=== PATIENT | male | born 1970 | race Caucasian/White ===

== ENCOUNTER → 2018-04-29 06:46 | Outpatient (CLI) | payer OTHER, SELFPAY ==
--- NOTE | 2018-04-29 07:46 | DI.CT.S_ITS ---
PROCEDURE: CT ABDOMEN W CON INDICATIONS: RIGHT UPPER QUADRANT PAIN TECHNIQUE: After the administration of oral and intravenous contrast, 5 mm thick sections acquired from the diaphragms to the iliac crests. 5 mm thick coronal and sagittal reformats were acquired. For radiation dose reduction, the following was used: automated exposure control, adjustment of mA and/or kV according to patient size. COMPARISON: [facility], CT, IVP (ABD & PEL WWO CONTRAST), 08/31/2017, 10:28. FINDINGS: Image quality: Excellent. Lung bases: Lung bases are clear. Heart size is normal. Solid organs: Liver is normal in size and enhancement. Gallbladder is within normal limits. Biliary system is non dilated. Pancreas enhances normally. Spleen is normal in size and enhancement. No adrenal nodules. Kidneys are normal in size. Mild bilateral pelvocaliectasis is again seen, unchanged from prior study. No filling defects are noted. No renal stone or ureteral stone is seen. No perinephric fat stranding. Peritoneum and bowel: Contrast enhanced bowel loops appear normal in caliber. No free fluid or air. There is a small hiatal hernia. Fecal stasis throughout the colon is noted. Nodes and vessels: No retroperitoneal or mesenteric adenopathy by size criteria. Aorta and inferior vena cava are normal in size. Bones: No suspicious bony lesions. No vertebral body compression fractures. Miscellaneous: No ventral hernias. IMPRESSION: 1. Mild bilateral renal pelvocaliectasis, changed from previous study and may represent mild bilateral UPJ stenosis. No renal stone or ureteral stone is seen. No perinephric fat stranding. 2. Mild constipation. Small hiatal hernia. No bowel obstruction. No free fluid or free air. Dictated by: Riley Ro M.D. on 04/29/2018 at 8:58 Approved by: Riley Ro M.D. on 04/29/2018 at 9:04
== END ==
PROVIDERS: Family Provider Specialist; PCP Family Medicine; Visit Provider Physical Medicine & Rehabilitation
DX: R10.11 Right upper quadrant pain (principal); N28.89 Other specified disorders of kidney and ureter; K59.00 Constipation, unspecified; K44.9 Diaphragmatic hernia without obstruction or gangrene; M47.817 Spondylosis without myelopathy or radiculopathy, lumbosacral region; M51.36 Other intervertebral disc degeneration, lumbar region
CPT/HCPCS: 74160; Q9967

== ENCOUNTER → 2018-05-30 17:14 | Outpatient (CLI) | payer OTHER, SELFPAY ==
--- NOTE | 2018-05-30 17:21 | DI.MRI.S_ITS ---
PROCEDURE: MR LUMBAR SPINE WO CON INDICATIONS: Low back pain with right buttock and lateral lower leg pain and numbness TECHNIQUE: Noncontrast sagittal T1 spin echo and T2 fast echo, sagittal STIR, axial T1 and T2 fast spin echo through the lumbar spine. In cases with scoliosis, additional coronal T2 fast spin echo may be performed. COMPARISON: [facility], MR, MR LUMBAR SPINE WO CON, 09/24/2015, 9:39. FINDINGS: Image quality: Excellent. Alignment and Curvature: There is straightening of normal lumbar lordosis. Minimal retrolisthesis of L4 and L5 is again seen, unchanged from previous study. Bone Marrow: Marrow is of normal overall signal. No acute vertebral body compression fractures. Decreased intervertebral disc space and degenerative endplate changes throughout lumbar spine is seen. Spinal Cord: Conus medullaris terminates at the T12-L1 level. Visualized cord demonstrates normal signal and size. Paraspinous Soft Tissues: No paravertebral masses. L1-L2: Mild diffuse disc bulge and bilateral facet arthrosis is seen with mild central canal stenosis, no significant neuroforaminal narrowing. L2-L3: Mild diffuse disc bulge and bilateral facet arthrosis is seen with mild central canal stenosis, no significant neuroforaminal narrowing. L3-L4: Broad-based disc bulge and bilateral facet arthrosis is seen with hypertrophy of ligamentum flavum. Mild central canal stenosis is seen, mild left-sided neural foramina narrowing is noted. L4-L5: Again noted is diffuse disc bulge and superimposed broad-based central disc protrusion. Bilateral facet arthrosis and hypertrophy of ligamentum flavum is seen. Moderate to severe central canal stenosis and bilateral neural foramina narrowing is noted at this level progressed since 2016 study. Finding is slightly worse on the right side with bulging disc likely contacting bilateral L4 and L5 nerve roots. L5-S1: Diffuse disc bulge and superimposed right lateral disc protrusion is seen with bilateral fibrosis and hypertrophy of ligamentum flavum. Mild central canal stenosis is noted. Moderate to severe right-sided neuroforaminal narrowing and mild to moderate left-sided neural foramina narrowing is seen, also progressed since previous study. Bulging disc likely contacting right L5 and S1 nerve roots. IMPRESSION: 1. Diffuse disc bulge and superimposed disc herniation with bilateral facet arthrosis at L4-5 and L5-S1 levels causing moderate central canal stenosis and moderate to severe bilateral neuroforaminal narrowing as described in detail above, progressed since 1999 at 16 study. 2. Mild degenerative disc bulge at L1-2 through L3-4 levels causing mild central canal stenosis, not significantly changed from previous study. 3. Stable minimal retrolisthesis of L4 on L5. No compression fracture. No marrow edema. Dictated by: Riley Ro M.D. on 05/31/2018 at 8:20 Approved by: Riley Ro M.D. on 05/31/2018 at 8:55
== END ==
PROVIDERS: Family Provider Specialist; PCP Family Medicine; Visit Provider Physical Medicine & Rehabilitation
DX: M47.817 Spondylosis without myelopathy or radiculopathy, lumbosacral region (principal); M47.816 Spondylosis without myelopathy or radiculopathy, lumbar region; M51.26 Other intervertebral disc displacement, lumbar region; M51.27 Other intervertebral disc displacement, lumbosacral region; M51.36 Other intervertebral disc degeneration, lumbar region; M48.061 Spinal stenosis, lumbar region without neurogenic claudication; M48.07 Spinal stenosis, lumbosacral region; M79.661 Pain in right lower leg
CPT/HCPCS: 72148

== ENCOUNTER 2018-06-25 14:15 | Outpatient (CLI) | payer OTHER, SELFPAY ==
[2018-06-25] VITALS (8 sets, daily range): BP systolic 104–133; BP diastolic 62–80; PULSE 58–70; RESP 16–18; TEMP 36.4; O2SAT 98–100
--- NOTE | 2018-06-25 14:17 | DI.RAD.S_ITS ---
PROCEDURE: PAIN L/SI FACET INJ/BLK 1STL INDICATIONS: [id number] Right L4/L5, L5/S1 facet joint injection FINDINGS: Fluoroscopic spot filming was performed to verify placement of spinal needles at the L4-L5 and L5-S1 level(s), as labeled on the films. Appropriate location(s) of the needle tip(s) was confirmed by injection of iodinated contrast. IMPRESSION: Fluoroscopy for pain management. Dictated by: Fadi Chilel M.D. on 06/25/2018 at 17:41 Approved by: Fadi Chilel M.D. on 06/25/2018 at 17:41
[2018-06-25] MEDS: MIDAZOLAM 5 MG/5 ML VIAL IV (15:05)
--- NOTE | 2018-06-25 15:22 | PC.NURSE ---
ACCEPTED CARE OF PT IN POST PROC AREA IN STABLE CONDITION
--- NOTE | 2018-06-25 15:25 | PC.NURSE ---
pt tolerated procedure well. pt a little sleepy but alert and able to get off the table with 2 person standby assist. Transferred pt via w/c to pre procedure room. Resumed monitoring by Tameka PEREZ.
--- NOTE | 2018-06-25 15:29 | P.PCN_ITS ---
Procedures Date/Time Date of procedure: 06/25/18 Time of procedure: 15:28 General Procedure description: PREOP DIAGNOSIS 1. FACET ARTHROPATHY, 2. AXIAL LBP, 3. MULTILEVEL DDD, POST OP DIAGNOSIS 1. FACET ARTHROPATHY, 2. AXIAL LBP, 3. MULTILEVEL DDD, PROCEDURES 1. FLUORSCOPICALLY GUIDED CONTRAST CONTROLLED FACET JOINT INJECTIONS RIGHT L4/5 , L5/S1 SURGEON: Ayad Medina, DO INDICATIONS Vahe is referred by for treatment of Axial LBP FINDINGS Multilevel Facet Arthropathy with Clinically significant axial LBP DESCRIPTION OF PROCEDURE Fluoroscopically guided, contrast-controlled right L4/5, L5/S1 facet joint injections. Following denial of allergy and review of potential side effects and complications, including, but not necessarily limited to, infection, allergic reaction, local tissue breakdown, stroke, temporary or permanent nerve injury, paralysis, and possible , the patient indicated that the patient understood and agreed to proceed. An informed consent document was signed by the patient, witnessed by a nurse, and placed in the patient's chart. Additionally, other treatment options including medications, modalities, and physical therapy were reviewed with the patient. After review of previous anaesthesic history and IV conscious sedation the patient was deemed safe to proceed with todays procedure with IV conscious sedation as ASA class II designation. Safety time-out was performed to confirm patient ID, procedure to be performed and site of procedure. IV sedation was accomplished with a combination of 4mg of Versed was administered by the RN after DO order, titrated to patient comfort during the course of the procedure while the patient remained responsive to all verbal commands. In the prone position, following sterile prep and drape of the lumbar region, the posterior aspect of the right L4/5, L5/S1 facet joints were identified fluoroscopically. The skin was anesthetized via a 25-gauge 1.5-inch needle with 1% lidocaine solution into the corresponding facet joints. At this point, a 22-gauge 3.5-inch spinal needle was atraumatically introduced and advanced under fluoroscopic guidance into the corresponding facet joints. Following negative aspiration, injections of approximately 0.2-cc of Isovue 200 confirmed interarticular placement without vascular uptake. Radiological data, including multiple fluoroscopic views of the lumbosacral spine, reveal a spinal needle at the right L4/5, L5/S1 facet joints. Subsequent views show flow of contrast material both superiorly and inferiorly within the joint space without vascular or intrathecal uptake. At this point, a total of 0.5 cc including a mixture of 0.25cc Marcaine and 0.25cc betamethasone was injected without complication into each of the corresponding facet joints. The procedure tolerated the procedure well without signs or symptoms of complications prior to transfer to the recovery area continued monitoring without incident. The patient was then transferred to the recovery area where they were observed for an appropriate period of time after the injection. The patient reported a VAS score of 7 prior to the procedure and a post-procedure VAS of 0. Total Fluoroscopy Time: 12.7 seconds Total Conscious Sedation Time: 24min POST OP INSTRUCTIONS The patient was provided a Pain Log to continue to record their response to the target-specific procedure prior to follow-up visit with their referring physician. Additionally, specific post-injection care instructions and a contact number to our office were provided if concerns arise regarding possible complications associated with the procedure are suspected. Ayad Medina, Complications: none
[2018-06-25] MEDS: LIDOCAINE 1% 20 ML INJ 10 ML INJ (15:33)
[2018-06-25] MEDS: IOPAMIDOL 15 ML VIAL 3 ML INJ (15:33)
[2018-06-25] MEDS: BETAMETHASONE 30 MG/5 ML MDV 12 MG INJ (15:34)
--- NOTE | 2018-06-26 16:17 | PC.NURSE ---
FOLLOW UP CALL MADE. MSG LEFT WITH CLINIC # FOR QUESTIONS/CONCERNS.
== END 2018-06-25 15:56 | disposition home or self-care (01) ==
PROVIDERS: Family Provider Specialist; PCP Family Medicine; Visit Provider Physical Medicine & Rehabilitation
DX: M47.817 Spondylosis without myelopathy or radiculopathy, lumbosacral region (principal); M51.36 Other intervertebral disc degeneration, lumbar region; M54.5 Low back pain
CPT/HCPCS: 64493; 64494; 99152; J0702; J2250

== ENCOUNTER 2018-09-03 14:58 | Outpatient (CLI) | payer OTHER, SELFPAY ==
[2018-09-03] VITALS (8 sets, daily range): BP systolic 105–129; BP diastolic 65–106; PULSE 65–77; RESP 16–18; TEMP 36.3; O2SAT 98–100
--- NOTE | 2018-09-03 15:00 | DI.RAD.S_ITS ---
PROCEDURE: PAIN L/SI FACET INJ/BLK 1STL INDICATIONS: SPONDYLOSIS FINDINGS: Fluoroscopic spot filming was performed to verify placement of spinal needles at the T12-L1 and the L1-L2 right-sided facet joints, as labeled on the films. Appropriate location(s) of the needle tip(s) was confirmed by injection of iodinated contrast. IMPRESSION: Facet localization for a steroid injection on the right at T12-L1 and L1-L2. Dictated by: Jcarlos Baez M.D. on 09/03/2018 at 16:14 Approved by: Jcarlos Baez M.D. on 09/03/2018 at 16:15
[2018-09-03] MEDS: MIDAZOLAM 5 MG/5 ML VIAL IV (15:23)
[2018-09-03] MEDS: BETAMETHASONE 30 MG/5 ML MDV 12 MG INJ (15:28)
[2018-09-03] MEDS: IOPAMIDOL 15 ML VIAL 3 ML INJ (15:28)
[2018-09-03] MEDS: BUPIVACAINE 0.5% (PF) VIAL 2 ML INJ (15:28)
--- NOTE | 2018-09-03 15:30 | PC.NURSE ---
ASSISTING PT OFF TABLE AND TRANSPORTING TO POST PROC AREA IN STABLE CONDITION
--- NOTE | 2018-09-03 15:42 | P.PCN_ITS ---
Procedures Date/Time Date of procedure: 09/03/18 Time of procedure: 15:37 General Procedure description: PREOP DIAGNOSIS 1. FACET ARTHROPATHY, 2. AXIAL LBP, 3. MULTILEVEL DDD, POST OP DIAGNOSIS 1. FACET ARTHROPATHY, 2. AXIAL LBP, 3. MULTILEVEL DDD, PROCEDURES 1. FLUORSCOPICALLY GUIDED CONTRAST CONTROLLED FACET JOINT INJECTIONS RIGHT T12/L1, L1/2 FACET JOINT INJECTIONS SURGEON: Ayad Medina, DO INDICATIONS Vahe is referred by Dr. Smith for treatment of Axial LBP FINDINGS Multilevel Facet Arthropathy with Clinically significant axial LBP DESCRIPTION OF PROCEDURE Fluoroscopically guided, contrast-controlled right T12/L1, L1/2 facet joint injections. Following denial of allergy and review of potential side effects and complications, including, but not necessarily limited to, infection, allergic reaction, local tissue breakdown, stroke, temporary or permanent nerve injury, paralysis, and possible , the patient indicated that the patient understood and agreed to proceed. An informed consent document was signed by the patient, witnessed by a nurse, and placed in the patient's chart. Additionally, other treatment options including medications, modalities, and physical therapy were reviewed with the patient. After review of previous anaesthesic history and IV conscious sedation the patient was deemed safe to proceed with todays procedure with IV conscious sedation as ASA class II designation. Safety time-out was performed to confirm patient ID, procedure to be performed and site of procedure. IV sedation was accomplished with a combination of 3mg of Versed administered by the RN after DO order, titrated to patient comfort during the course of the procedure while the patient remained responsive to all verbal commands. In the prone position, following sterile prep and drape of the lumbar region, the posterior aspect of the right T12/L1, L1/2 facet joints were identified fluoroscopically. The skin was anesthetized via a 25-gauge 1.5-inch needle with 1% lidocaine solution into the corresponding facet joints. At this point, a 22- gauge 3.5-inch spinal needle was atraumatically introduced and advanced under fluoroscopic guidance into the corresponding facet joints. Following negative aspiration, injections of approximately 0.2-cc of Isovue 200 confirmed interarticular placement without vascular uptake. Radiological data, including multiple fluoroscopic views of the lumbosacral spine, reveal a spinal needle at the right T12/L1, L1/2 facet joints. Subsequent views show flow of contrast material both superiorly and inferiorly within the joint space without vascular or intrathecal uptake. At this point, a total of 0.5 cc including a mixture of 0.25 cc Marcaine and 0.25 cc betamethasone was injected without complication into each of the corresponding facet joints. The patient tolerated the procedure well without signs or symptoms of complications prior to transfer to the recovery area for further monitoring. The patient was then transferred to the recovery area where they were observed for an appropriate period of time after the injection. The patient reported a VAS score of 7 prior to the procedure and a post-procedure VAS of 0. Total Fluoroscopy Time: 12.7 seconds Total Conscious Sedation Time: 24min POST OP INSTRUCTIONS The patient was provided a Pain Log to continue to record their response to the target-specific procedure prior to follow-up visit with their referring physician. Additionally, specific post-injection care instructions and a contact number to our office were provided if concerns arise regarding possible compli cations associated with the procedure are suspected Complications: none
--- NOTE | 2018-09-03 16:04 | PC.NURSE ---
pt returned from procedure via wheelchair, awake and alert, able to move from w/c to chair with standby assist. Resumed monitoring from Tameka PEREZ.
--- NOTE | 2018-09-04 15:41 | PC.NURSE ---
FOLLOW UP CALL MADE, LEFT PHONE MSG WITH CLINIC PHONE NUMBER AND HOURS FOR QUESTIONS/CONCERNS.
== END 2018-09-03 16:09 ==
LOC: RAD 15:00
PROVIDERS: PCP Family Medicine; Visit Provider Physical Medicine & Rehabilitation
DX: M47.816 Spondylosis without myelopathy or radiculopathy, lumbar region (principal); M47.815 Spondylosis without myelopathy or radiculopathy, thoracolumbar region; M51.36 Other intervertebral disc degeneration, lumbar region; M51.25 Other intervertebral disc displacement, thoracolumbar region
CPT/HCPCS: 64493; 64494; 99152; J0702; J2250; J3010

== ENCOUNTER 2019-06-24 15:27 | Outpatient (CLI) | payer OTHER, SELFPAY ==
[2019-06-24] VITALS (7 sets, daily range): BP systolic 107–125; BP diastolic 67–84; PULSE 65–78; RESP 16–18; TEMP 36.4; O2SAT 97–100
--- NOTE | 2019-06-24 15:30 | DI.RAD.S_ITS ---
PROCEDURE: PAIN L/SI FACET INJ/BLK 1STL INDICATIONS: SPONDYLOSIS FINDINGS: Fluoroscopic spot filming was performed to verify placement of spinal needles at the L4, L5 and S1 level(s), as labeled on the films. Appropriate location(s) of the needle tip(s) was confirmed by injection of iodinated contrast. Dictated by: Damian Sheffield M.D. on 06/24/2019 at 17:24 Approved by: Damian Sheffield M.D. on 06/24/2019 at 17:25
[2019-06-24] MEDS: fentaNYL 100 MCG/2 ML INJ 50 MCG IV (16:27)
[2019-06-24] MEDS: MIDAZOLAM 5 MG/5 ML VIAL IV (16:27)
[2019-06-24] MEDS: IOPAMIDOL 15 ML VIAL 3 ML INJ (16:30)
[2019-06-24] MEDS: BUPIVACAINE 0.5% (PF) VIAL 2 ML INJ (16:30)
--- NOTE | 2019-06-24 16:33 | PC.NURSE ---
ASSISTING PT OFF TABLE AND TRANSPORTING TO POST PROC AREA IN STABLE CONDITION. PASSING RN CARE OF PT OFF TO RUBY Will RN.
--- NOTE | 2019-06-24 16:40 | PM.PROC.1 ---
Procedures Date/Time Date of procedure: 06/24/19 Time of procedure: 16:41 General Procedure description: POST OP DIAGNOSIS 1. FACET ARTHROPATHY PROCEDURES 1. Right L4, L5 and S1 MB BLOCKS PHYSICIAN: DO ADNA Lerma Vhae is referred by Dr. Smith for treatment of Right Axial LBP. DESCRIPTION OF PROCEDURE Fluoroscopically guided, contrast-controlled right L4, L5 and S1 medial branch blocks with 0.5cc of 0.5% Marcaine. Following review of allergy and review of potential side effects and complications, including, but not necessarily limited to, infection, allergic reaction, local tissue breakdown, nerve injury, paralysis, stroke and possible , the patient indicated that the patient understood and agreed to proceed. An informed consent document was signed by the patient, witnessed by a nurse, and placed in the patient's chart. After review of previous anaesthesic history and IV conscious sedation the patient was deemed safe to proceed with todays procedure with IV conscious sedation as ASA class II designation. Safety time-out was performed to confirm patient ID, procedure to be performed and site of procedure. IV sedation was accomplished with a combination of 2mg of Versed and 25mcg of Fentanyl was administered by the RN after DO order, titrated to patient comfort during the course of the procedure while the patient remained responsive to all verbal commands In the prone position, following sterile prep and drape of the lumbar region, the right L4, L5 and S1 anatomical location of the medial branch of the dorsal ramus was identified fluoroscopically. Subsequently an anesthetic skin wheal using 1% lidocaine solution was initiated at each of the anatomical spots. Subsequently then a 25-gauge 3.5-inch spinal needle was atraumatically introduced and advanced under fluoroscopic guidance at each of the corresponding sites at the right L4, L5 and S1 MB. After negative aspiration, 0.2 cc of Isovue 200 was injected, confirming placement without vascular or intrathecal uptake. Subsequently then 0.5 cc of 0.5% Marcaine solution was injected at each of the corresponding sites at the right L4, L5 and S1 medial branch locations. The patient tolerated the procedure well without signs or symptoms of complications. The procedure tolerated the procedure well without signs or symptoms of complications prior to transfer to the recovery area continued monitoring without incident. Post-procedure, the patient was monitored initiating provocative activities to measure the amount of relief from block of the facetogenic pain. The patient reported a VAS of 7 prior to the procedure and a post-procedure VAS of 1. It has been a pleasure to assist in the diagnostic and therapeutic care of your patient. Total Fluoroscopy Time: 8 seconds Total Conscious Sedation Time: 24min POST OP INSTRUCTIONS The patient was provided with a Pain Log to complete over the next several hours and subsequent days prior to the patient's follow up with the ordering physician. If the patient has [employer] certified network associate relief to the solution applied, then they may be a candidate for medial branch rhizotomy. The patient is aware, was provided, once again, with a Pain Log and will follow up with the referring physician for review and clinical correlation Ayad Medina DO Complications: none
== END 2019-06-24 17:02 | disposition home or self-care (01) ==
LOC: RAD 15:29
PROVIDERS: PCP Family Medicine; Visit Provider Physical Medicine & Rehabilitation
DX: M47.816 Spondylosis without myelopathy or radiculopathy, lumbar region (principal); M47.817 Spondylosis without myelopathy or radiculopathy, lumbosacral region; M54.5 Low back pain
CPT/HCPCS: 64493; 64494; 99152; J2250; J3010

== ENCOUNTER → 2019-12-06 11:11 | Outpatient (CLI) | payer OTHER, SELFPAY ==
[2019-12-07 18:11] LABS: COVID19 Sendout Not Detected (Not Detect)
== END ==
PROVIDERS: PCP Family Medicine; Visit Provider Physician Assistant
DX: Z01.812 Encounter for preprocedural laboratory examination (principal)
CPT/HCPCS: 87635

== ENCOUNTER 2019-12-09 07:43 | Outpatient (CLI) | payer OTHER, SELFPAY ==
[2019-12-09] VITALS (11 sets, daily range): BP systolic 114–140; BP diastolic 63–85; PULSE 61–86; RESP 15–18; TEMP 36.1; O2SAT 97–100
--- NOTE | 2019-12-09 07:44 | DI.RAD.S_ITS ---
PROCEDURE: PAIN L/S MED/LAT N RFA INDICATIONS: SPONDYLOSIS FINDINGS: Fluoroscopic spot filming was performed to verify placement of spinal needles at the L4, L5, and S1 levels on the right, as labeled on the films. IMPRESSION: Intraprocedural examination within normal limits. Dictated by: Gabriel Peterson M.D. on 12/09/2019 at 8:40 Approved by: Gabriel Peterson M.D. on 12/09/2019 at 8:40
[2019-12-09] MEDS: MIDAZOLAM 2 MG/2 ML VIAL IV ×2 (08:35→08:36)
[2019-12-09] MEDS: fentaNYL 100 MCG/2 ML INJ 50 MCG IV (08:35)
[2019-12-09] MEDS: LIDOCAINE 1% 20 ML 10 ML INJ (08:53)
[2019-12-09] MEDS: BUPIVACAINE 0.5% (PF) VIAL 2 ML INJ (08:54)
--- NOTE | 2019-12-09 09:09 | P.PCN_ITS ---
Date/Time/Diagnoses Date of procedure: 12/09/19 Time of procedure: 09:09 Pre-procedure diagnosis: 1. RECALCITRANT FACET ARTHROPATHY Post-procedure diagnosis: same Procedure Notes Procedure: 1. RIGHT L4 AND L5 MEDIAL BRANCH RADIOFREQUENCY NEUROTOMY AND RIGHT S1 DORSAL RAMUS BRANCH RADIOFREQUENCY NEUROTOMY Indications: Vahe is referred by Dr. Smith for treatment of facet arthropathy. Physician: Ayad Medina Total Fluoroscopy time (seconds): 11 Total sedation minutes: 45 Complications: none Procedure in detail & Post-procedure care: DESCRIPTION OF PROCEDURE Right L4 and L5 medial branch radiofrequency neurotomy and right S1 dorsal ramus branch radiofrequency neurotomy under fluoroscopy with conscious sedation. The patient is well known to this clinic having undergone previous facet injections with good but temporary relief. The patient has experienced appropriate, concordant relief with previous facet and median branch blocks but the patient's pain has been recalcitrant to further conservative measures. Therefore, based upon the patient's relief and persistent symptoms, the patient is considered an appropriate candidate for facet rhizotomy. All of the patient's questions regarding the risks versus benefits of the procedure, including, but not limited to, bleeding, infection, temporary as well as lasting nerve injury, paralysis, stroke, and , as well treatment alternatives were answered to satisfaction. After review of previous anaesthesic history and IV conscious sedation the patient was deemed safe to proceed with today?s procedure with IV conscious sedation as ASA class II designation. Safety time-out was performed to confirm patient ID, procedure to be performed and site of procedure. IV sedation was accomplished with a combination of 3mg of Versed and 50mcg of Fentanyl was administered by the RN after DO order, titrated to patient comfort during the course of the procedure while the patient remained responsive to all verbal commands. After obtaining informed consent, denial of pertinent drug allergies, as well as being made aware of the potential risks of bleeding, infection, spinal cord trauma, paralysis, temporary and permanent nerve damage, seizure, stroke, and possible , the patient was brought to the fluoroscopy suite and positioned prone on the fluoroscopy table. The lumbar region was prepped with chlorhexadine and covered with a fenestrated drape in the usual sterile fashion. Appropriate monitors applied including pulse oximeter, pulse, and blood pressure for regular monitoring throughout the procedure. After local infiltration using 1% lidocaine, under fluoroscopic guidance, a 10- cm RF insulated needle with a 10-mm active tip was positioned parallel to the junction of the right sacral ala and the superior articulating process where the S1 dorsal ramus resides. Needle placement was confirmed with sensory stimulation at 50 Hz, with motor stimulation of .5v on the right which produced local stimulation without radicular component. The stimulation was then increased to 1.5v with, once again, only local multifidus stimulation without radicular component. This was then followed by two discreet lesions performed at 80 degrees Celsius for 90 seconds each. The needle was then removed and the identical procedure was performed along the length of the right L5 medial branch with motor stimulation at .7v on the right. The identical procedure was once again performed along the length of the right L4 medial branch with motor stimulation of .5v on the right. The patient tolerated the procedure well without signs or symptoms of complications prior to transfer to the recovery area continued monitoring without incident. The patient was then transferred to the recovery area where they were observed for an appropriate period of time after the injection. The patient was then transferred to the recovery area where they were observed for an appropriate period of time after the injection. The patient reported a VAS score of 97prior to the procedure and a post- procedure VAS of 1. POST OP INSTRUCTIONS The patient was provided a Pain Log to continue to record the patient's response to the target-specific procedure prior to the patient's follow-up visit with the referring physician. Additionally, specific post-injection care instructions and a contact number to our office were provided if concerns arise regarding possible complications associated with the procedure are suspected.
--- NOTE | 2019-12-09 09:19 | PC.NURSE ---
Pt returned to pre proc room via wc. 1PA from wc to chair, resumed monitoring by Ban
--- NOTE | 2019-12-09 16:00 | PC.NURSE ---
Pt tolerated procedure well. Vitals stable upon transfer to ANA Cevallos in post procedure/recovery room. Fentanyl and Versed given by ANA Tejeda, all other meds administered by Dr. Medina.
== END 2019-12-09 09:36 | disposition home or self-care (01) ==
LOC: RAD 07:44
PROVIDERS: PCP Family Medicine; Referring Provider Physical Medicine & Rehabilitation; Visit Provider Physical Medicine & Rehabilitation
DX: M47.816 Spondylosis without myelopathy or radiculopathy, lumbar region (principal); M47.817 Spondylosis without myelopathy or radiculopathy, lumbosacral region
CPT/HCPCS: 64635; 64636; 99152; 99153; J2250; J3010

== ENCOUNTER → 2020-11-15 15:22 | Outpatient (CLI) | payer OTHER, SELFPAY ==
--- NOTE | 2020-11-15 15:25 | DI.RAD.S_ITS ---
PROCEDURE: XR LUMBAR SPINE MIN 4V INDICATIONS: PAIN TECHNIQUE: 5 views of the lumbar spine were acquired, including bilateral oblique views. COMPARISON: [facility] [place], CR, SPINE LUMB MIN 4VW, 12/13/2016, 9:14. FINDINGS: Bones: No acute fracture. Multilevel degenerative endplate sclerosis and spurring. Diffuse facet arthropathy. Moderate narrowing of the L4-L5 disc space. Mild narrowing of the remaining lumbar disc spaces. Trace retrolisthesis of L2 on L3 and L3 on L4. Soft tissues: Overlying bowel gas pattern is normal. No suspicious soft tissue calcifications. Oblique images: No pars defects. IMPRESSION: Diffuse lumbar spondylosis and moderate L4-L5 disc degeneration, with slight progression since 12/13/16. Diffuse facet arthropathy Dictated by: Damian Sheffield M.D. on 11/15/2020 at 16:28 Approved by: Damian Sheffield M.D. on 11/15/2020 at 16:30
--- NOTE | 2020-11-15 15:25 | DI.RAD.S_ITS ---
PROCEDURE: XR THORACIC SPINE 3V INDICATIONS: PAIN TECHNIQUE: 3 views of the thoracic spine were acquired. COMPARISON: None. FINDINGS: Bones: No acute fracture identified. There is dextrocurvature of the visualized thoracic spine. Multilevel degenerative endplate sclerosis and spurring. Diffuse facet arthropathy. Lower cervical spondylosis and facet arthropathy also noted. Chronic soft tissue calcification projects at the base of the posterior cervical spine. Soft tissues: No paravertebral stripe thickening. IMPRESSION: Diffuse spondylitic changes. Dextrocurvature Lower cervical spondylosis also noted. Dictated by: Damian Sheffield M.D. on 11/15/2020 at 16:27 Approved by: Damian Sheffield M.D. on 11/15/2020 at 16:28
== END ==
PROVIDERS: Referring Provider Physical Medicine & Rehabilitation; Visit Provider Physical Medicine & Rehabilitation
DX: M47.816 Spondylosis without myelopathy or radiculopathy, lumbar region (principal); M47.817 Spondylosis without myelopathy or radiculopathy, lumbosacral region; M47.814 Spondylosis without myelopathy or radiculopathy, thoracic region; M47.812 Spondylosis without myelopathy or radiculopathy, cervical region; M51.24 Other intervertebral disc displacement, thoracic region
CPT/HCPCS: 72072; 72110

== ENCOUNTER → 2022-05-11 15:51 | Outpatient (CLI) | payer OTHER, SELFPAY ==
--- NOTE | 2022-05-11 15:58 | DI.RAD.S_ITS ---
PROCEDURE: XR CERVICAL SPINE 4V OR 5V INDICATIONS: NECK PAIN TECHNIQUE: 5 views of the cervical spine acquired. COMPARISON: None. FINDINGS: Bones: No fractures or dislocations to the C7 level. There is trace retrolisthesis at C3-4 and C4-5. Intervertebral disc space narrowing and osteophytosis is present within the mid cervical spine. Moderate to severe foraminal stenosis is present on the right at C4-5 and moderate stenosis is present at C5-6. Severe foraminal stenosis is present on the left at C4-5 and C5-6. Moderate stenosis is present on the left at C6-7. Soft tissues: No prevertebral soft tissue swelling. IMPRESSION: Degenerative change and foraminal stenosis as above. Dictated by: Krystin White M.D. on 05/11/2022 at 16:38 Approved by: Krystin White M.D. on 05/11/2022 at 16:39
--- NOTE | 2022-05-11 15:58 | DI.RAD.S_ITS ---
PROCEDURE: XR SHOULDER RT MIN 2V INDICATIONS: RIGHT SHOULDER PAIN TECHNIQUE: 3 views of the shoulder were acquired. COMPARISON: None. FINDINGS: Bones: No fractures or dislocations. No suspicious bony lesions. Visualized ribs appear intact. Soft tissues: No suspicious soft tissue calcifications. IMPRESSION: No acute radiographic findings. Dictated by: Krystin White M.D. on 05/11/2022 at 16:37 Approved by: Krystin White M.D. on 05/11/2022 at 16:37
== END ==
PROVIDERS: Referring Provider Physical Medicine & Rehabilitation; Visit Provider Physical Medicine & Rehabilitation
DX: M47.812 Spondylosis without myelopathy or radiculopathy, cervical region (principal); M48.02 Spinal stenosis, cervical region; M54.2 Cervicalgia; M25.511 Pain in right shoulder; M19.011 Primary osteoarthritis, right shoulder; M77.11 Lateral epicondylitis, right elbow; M47.816 Spondylosis without myelopathy or radiculopathy, lumbar region; M47.814 Spondylosis without myelopathy or radiculopathy, thoracic region
CPT/HCPCS: 20611; 72050; 73030; 99214; J1040

== ENCOUNTER → 2022-06-05 11:14 | Outpatient (CLI) | payer OTHER, SELFPAY ==
[2022-06-05 12:45] LABS: COVID19 -Nasal RAPID Negative (Negative)
== END ==
PROVIDERS: Visit Provider Surgery
DX: Z01.812 Encounter for preprocedural laboratory examination (principal); Z20.822 Contact with and (suspected) exposure to COVID-19
CPT/HCPCS: 87635; C9803

== ENCOUNTER 2022-06-06 12:42 | Day surgery (SDC) | payer OTHER, SELFPAY ==
--- NOTE | 2022-06-06 | PATH_ITS ---
[facility] Accession Number: [id number] . 01 Material submitted: . rectum - RECTUM . 01 Diagnosis: Rectum, Biopsy: Tubular adenoma. MRV 06/08/2022 1442 Local . 01 Electronically signed: . Radha Stark MD, Pathologist NPI- [id number] . 01 Gross description: . RECTUM: Received in formalin is 1 fragment(s) of kauffman, soft tissue measuring 0.4 x 0.3 x 0.2 cm submitted entirely in 1 cassette(s) /CPE 06/07/2022 0922 Local . 01 Pathologist provided ICD-10: D12.8 . 01 CPT . 251874 Specimen Comment: A courtesy copy of this report has been sent to [phone] Performed at: 01 [facility] [address] [place] [id number] MD Shai Almanza MD Phone: [phone]
[2022-06-06 13:02] VITALS: BP 126/70; PULSE 80; RESP 17; TEMP 36.4; O2SAT 100; BMI 25.9
--- NOTE | 2022-06-06 13:04 | PM.HP.1 ---
History of Present Illness History of Present Illness Date Patient Seen: 06/06/22 Time Patient Seen: 13:04 Chief complaint: EGD/Colonoscopy Narrative: Patient is here for colorectal screening with colonoscopy and EGD. Personal history of colonic polyps, last colonoscopy 5 years ago. He is a long history of GERD and he has occasional dyspepsia and epigastric discomfort. No dysphagia no unintentional weight loss. Father with a history of colon cancer.. On further history denies any recent gastrointestinal symptoms. No nausea, vomiting, loss of appetite, unexplained weight loss, change in bowel habits, or blood per rectum. 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 Facet arthropathy, lumbar Lateral epicondylitis Surgical History History of arthroscopy of knee Family & Social History Family History Father Colon cancer Mother Polyp, stomach Grandmother Stroke Tobacco & Substance use: Smoking Status Never smoker Meds Home Medications and Allergies Home Medications Medication Instructions Recorded Confirmed Type acetaminophen 325 mg tablet 650 mg PO Q6H PRN Pain (Scale 04/07/20 06/06/22 History (Tylenol) Score 1-3) atorvastatin 10 mg tablet 10 mg PO BEDTIME 05/11/22 06/06/22 History Allergies Allergy/AdvReac Type Severity Reaction Status Date / Time No Known Drug Allergies Allergy Verified 06/06/22 12:59 Exam Narrative Exam Narrative: General adult male alert oriented no acute distress Abdomen soft nontender nondistended Assessment & Plan Assessment & Plan narrative: 52-year-old man personal history of colonic polyps and chronic reflux here for colonoscopy and esophagoduodenoscopy. Overview the procedure was discussed with the patient. Procedural risks including bleeding, missed diagnosis, intestinal perforation, anesthetic complication were discussed. Questions have been answered he is in agreement with this plan Time Spent With Patient Critical Care time: I spent a total of [] minutes of critical care time on this patient's care today; this time is exclusive of procedural time.
[2022-06-06] MEDS: LACTATED RINGERS 1,000 ML 200 ML IV (13:13)
--- NOTE | 2022-06-06 13:37 | PM.OP.EC ---
Operative Date/Time/Diagnoses Date of procedure: 06/06/22 Time of procedure: 13:37 Pre-op diagnosis: Family history of colon cancer Personal history of colonic polyps GERD Post-op diagnosis: same Procedure & Clinicians Study performed: Esophagoduodenoscopy and colonoscopy Same procedure as scheduled: Yes Indications: Personal history of colonic polyps First-degree family member with colon cancer GERD Surgeon: Jamie Rader Procedure Notes Procedure in detail: The history and physical was performed/updated and the patient is ASA class is 2. The procedure was discussed in detail with the patient. Potential risks complications including infection, bleeding, missed diagnosis, perforation, need for surgery, and were explained. Their questions were answered and informed consent was obtained. Patient placed in left lateral decubitus position. Time out was performed. Sedation was administered by anesthesia. A bite block was placed. the scope was inserted into the mouth and advanced through the esophagus and into the stomach. The pylorus was intubated and the duodenum was normal to the 2nd portion. The scope was retroflexed within the stomach and there was no hiatal hernia. No ulcers, or gastritis. The scope was withdrawn into the esophagus the Z line was seen at 40 cm from the incisions. There was no Rubalcava's esophagitis or masses or strictures. Stomach was desufflated and scope removed. Patient tolerated procedure well. Examination began with a thorough inspection of the perianal area there was no evidence of fissures, fistulae, external hemorrhoids or cutaneous malignancy. The colonoscopy scope was then placed into the anal canal and was advanced to the cecum, which was identified by the ileocecal valve, the appendiceal orifice and the confluence of the taenia. The scope was then slowly withdrawn examining colon thoroughly in all directions, irrigating it of any residual stool. FINDINGS 1. Rectum-5 mm polyp removed with biopsy forceps 2. Normal esophagus stomach and duodenum The patient tolerated the procedure well. They will be discharged once criteria are met. The prep was of good/excellent quality. The withdrawl time was 7 minutes. Specimen(s): other (Rectal polyp) Impression: Colonic polyp Post-procedure Recommendations: Colonscopy in 5 years, Reflux diet and High fiber diet Disposition: same day surgery
[2022-06-06 14:16] VITALS: BP 100/66; PULSE 75; RESP 13; TEMP 36.1; O2SAT 98
[2022-06-06 14:21] VITALS: BP 104/66; PULSE 75; RESP 17; O2SAT 98
[2022-06-06 14:26] VITALS: BP 105/68; PULSE 67; RESP 19; O2SAT 99
[2022-06-06 14:31] VITALS: BP 108/70; PULSE 64; RESP 10; TEMP 36.1; O2SAT 100
[2022-06-06 14:37] VITALS: BP 110/74; PULSE 62; RESP 11; TEMP 36.1; O2SAT 100
== END 2022-06-06 14:44 | disposition home or self-care (01) ==
PROVIDERS: PCP Internal Medicine; Referring Provider Surgery; Visit Provider Surgery
PROC: 0DJ08ZZ Inspection of Upper Intestinal Tract, Via Natural or Artificial Opening Endoscopic (ICD-10-PCS; CPT 43235; principal; 2022-06-06 13:45)
PROC: 0DJD8ZZ Inspection of Lower Intestinal Tract, Via Natural or Artificial Opening Endoscopic (ICD-10-PCS; CPT 45378; 2022-06-06 13:45)
DX: Z12.11 Encounter for screening for malignant neoplasm of colon (principal); K21.9 Gastro-esophageal reflux disease without esophagitis; Z80.0 Family history of malignant neoplasm of digestive organs; Z86.010 Personal history of colon polyps; D12.8 Benign neoplasm of rectum
CPT/HCPCS: 45380; 43235; J2704

== ENCOUNTER → 2023-02-11 08:55 | Outpatient (CLI) | payer OTHER, SELFPAY ==
--- NOTE | 2023-02-11 08:56 | DI.MRI.S_ITS ---
PROCEDURE: MR SHOULDER RT WO CON INDICATIONS: Right shoulder impingement TECHNIQUE: Noncontrast oblique coronal T2 fast spin echo with fat saturation, oblique sagittal T1 spin echo and T2 fast spin echo with fat saturation, axial T1 spin echo and T2 fast spin echo with fat saturation through the shoulder. COMPARISON: [facility], CR, XR SHOULDER RT MIN 2V, 05/11/2022, 16:00. FINDINGS: Image quality: Excellent. Rotator cuff: There is full-thickness tearing of the supraspinatus tendon approximately 0.5 cm from the distal insertion measuring 1.1 cm in anterior-posterior dimension with mild proximal tendon retraction measuring approximately 0.6 cm. There is moderate infraspinatus and subscapularis tendinosis. The teres minor tendon is intact. There is no significant rotator cuff muscle atrophy. Bones and bursae: Osseous edema surrounding the acromioclavicular joint is most likely related to moderate degenerative changes on the than acute trabecular bone injury. There are subchondral cystic changes and small marginal osteophytes. A moderate amount of fluid is seen in the subacromial/subdeltoid bursa. Mild surface cartilage irregularity is seen in the glenohumeral joint. No significant glenohumeral effusion is seen. Capsule and soft tissues: There is nearly circumferential nondisplaced labral tearing, which is likely degenerative. A 0.4 cm paralabral cyst versus loculated joint fluid is seen at the anteroinferior labrum. The proximal biceps long head tendon demonstrates mild tendinosis. There is effacement of the normal fat signal in the rotator interval. Glenohumeral ligaments appear to be intact. IMPRESSION: 1. Focal full-thickness tearing of the supraspinatus tendon approximately 0.5 cm from the distal insertion measuring 1.1 cm with proximal tendon retraction measuring 0.6 cm. 2. Moderate infraspinatus and subscapularis tendinosis. 3. Mild tendinosis of the proximal biceps long head tendon. 4. Chronic appearing nearly circumferential nondisplaced tearing of the glenoid labrum. 0.4 cm paralabral cyst versus loculated joint fluid at the anteroinferior labrum. 5. Moderate acromioclavicular joint osteoarthrosis with prominent subchondral edema that is likely related to the degenerative changes although superimposed contusion or recent separation injury is not excluded. Acromioclavicular alignment appears normal. The coracoclavicular ligament is intact. 6. Moderate subacromial/subdeltoid bursal fluid communicates with the glenohumeral joint space. Approved by: Néstor Brown M.D. on 02/12/2023 at 10:56
== END ==
PROVIDERS: PCP Internal Medicine; Referring Provider Physical Medicine & Rehabilitation; Visit Provider Physical Medicine & Rehabilitation
DX: M75.121 Complete rotator cuff tear or rupture of right shoulder, not specified as traumatic (principal); M19.011 Primary osteoarthritis, right shoulder; M75.41 Impingement syndrome of right shoulder
CPT/HCPCS: 73221

== ENCOUNTER → 2023-06-07 08:07 | Outpatient (CLI) | payer OTHER, SELFPAY | LOC: PHYS 08:08 | PROVIDERS: PCP Internal Medicine; Referring Provider Internal Medicine; Visit Provider Physical Medicine & Rehabilitation | DX: M54.16 Radiculopathy, lumbar region (principal) | CPT/HCPCS: 95886; 95910 ==

== ENCOUNTER → 2023-06-07 10:14 | Outpatient (CLI) | payer OTHER, SELFPAY ==
--- NOTE | 2023-06-07 10:16 | DI.MRI.S_ITS ---
PROCEDURE: MR LUMBAR SPINE WO CON INDICATIONS: right lower exremity footdtop TECHNIQUE: Noncontrast sagittal T1 spin echo and T2 fast echo, sagittal STIR, and T2 fast spin echo through the lumbar spine. In cases with scoliosis, additional coronal T2 fast spin echo may be performed. COMPARISON: [facility], MR, MR LUMBAR SPINE WO CON, 05/30/2018, 17:42. FINDINGS: Image quality: Excellent. Alignment and Curvature: There is normal bony alignment. Bone Marrow: Marrow is of normal overall signal. No acute vertebral body compression fractures. Spinal Cord: Conus medullaris terminates at the L1 level. Visualized cord demonstrates normal signal and size. Paraspinous Soft Tissues: No paravertebral masses. T12-L1: Moderate disc desiccation and height loss. Broad-based disc bulge. Mild facet ligamentum flavum hypertrophy. No canal stenosis. No foraminal stenosis. Findings are unchanged when compared with the study dated May 30, 2018. L1-L2: Moderate disc desiccation and height loss. Broad-based disc bulge. Moderate facet ligamentum flavum hypertrophy. Mild canal stenosis. No foraminal stenosis. The degree of canal stenosis is slightly increased from the prior study. L2-L3: Moderate disc desiccation and height loss. Moderate facet ligamentum flavum hypertrophy. Broad-based disc bulge. No canal stenosis. Mild bilateral foraminal stenosis. Findings are unchanged from the prior study. There is a new posterior focal high-intensity zone present. L3-L4: Moderate disc desiccation and height loss. Broad-based disc bulge. Moderate facet ligamentum flavum hypertrophy. Moderate canal stenosis. Moderate bilateral foraminal stenosis. The degree of canal stenosis and foraminal narrowing is increased from the prior study. Posterior focal high-intensity zone is redemonstrated. L4-L5: Severe disc desiccation and height loss. Severe facet ligamentum flavum hypertrophy. Mild canal stenosis. Moderate bilateral foraminal stenosis. The degree of disc desiccation, height loss, reactive endplate changes, and foraminal stenosis has increased when compared with the prior study. There is now mild flattening of the bilateral exiting nerve roots. L5-S1: Moderate disc desiccation and height loss. Moderate facet ligamentum flavum hypertrophy. Moderate canal stenosis. Mild bilateral foraminal narrowing. The degree of canal stenosis is slightly increased from the prior study. Posterior focal high-intensity zone is redemonstrated. IMPRESSION: 1. Increased canal stenosis at L1-2, L3-4, and L5-S1 when compared with the study dated May 30, 2018. 2. Increased foraminal stenosis is present bilaterally at L3-4 and L4-5 when compared with the prior study. 3. New annular fibrosis tear at L2-3. 4. Unchanged annular fibrosis tear at L3-4 and L4-5. Dictated by: Krystin White M.D. on 06/07/2023 at 14:50 Approved by: Krystin White M.D. on 06/07/2023 at 14:57
== END ==
LOC: MRI 10:15
PROVIDERS: PCP Internal Medicine; Referring Provider Physical Medicine & Rehabilitation; Visit Provider Physical Medicine & Rehabilitation
DX: M51.16 Intervertebral disc disorders with radiculopathy, lumbar region (principal); M48.061 Spinal stenosis, lumbar region without neurogenic claudication; M48.07 Spinal stenosis, lumbosacral region
CPT/HCPCS: 72148; 95886; 95910

== ENCOUNTER 2023-07-19 09:41 | Outpatient (CLI) | payer OTHER, SELFPAY ==
[2023-07-19] VITALS (8 sets, daily range): BP systolic 113–151; BP diastolic 62–83; PULSE 74–83; RESP 15–20; TEMP 36.6; O2SAT 98–100
--- NOTE | 2023-07-19 10:15 | DI.RAD.S_ITS ---
PROCEDURE: PAIN L INTERLAMINAR/CAUDAL INJ INDICATIONS: RADICULOPATHY COMPARISON: None. FINDINGS: Fluoroscopic spot filming was performed to verify placement of spinal needles at the L5-S1 level(s), as labeled on the films. Appropriate location(s) of the needle tip(s) was confirmed by injection of iodinated contrast. IMPRESSION: Intra procedural examination demonstrating appropriate positions of the needles. Dictated by: Aashish Paige M.D. on 07/19/2023 at 12:38 Approved by: Aashish Paige M.D. on 07/19/2023 at 12:39
[2023-07-19] MEDS: MIDAZOLAM 2 MG/2 ML VIAL IV (11:00)
[2023-07-19] MEDS: BUPIVACAINE 0.25% (PF) VIAL 2 ML INJ (11:05)
[2023-07-19] MEDS: iopamidoL 15 ML VIAL 3 ML INJ (11:05)
[2023-07-19] MEDS: BETAMETHASONE 30 MG/5 ML MDV 6 MG INJ (11:05)
[2023-07-19] MEDS: DEXAMETHASONE 10 MG/ML VIAL INJ (11:05)
--- NOTE | 2023-07-19 11:19 | PM.PROC.IR.1 ---
Date/Time/Diagnoses Date of procedure: 07/19/23 Time of procedure: 11:19 Pre-procedure diagnosis: 1. HNP WITH RADICULAR FEATURES, 2. MULTILEVEL CENTRAL STENOSIS, Post-procedure diagnosis: same Procedure Notes Procedure: 1. FLUOROSCOPICALLY GUIDED CONTRAST CONTROLLED INTERLAMINAR EPIDURAL STEROID INJECTION - L5/S1 Indications: Vahe is referred by Dr. Medrano for treatment of Bilateral Foraminal Stenosis L>R LE symptoms. Physician: Ayad Medina Total Fluoroscopy time (seconds): 8 Total sedation minutes: 12 Complications: none Procedure in detail & Post-procedure care: FINDINGS Multilevel Central Spinal Stenosis with Nerve Root Compression DESCRIPTION OF PROCEDURE Fluoroscopically guided, contrast-controlled L5/S1 translaminar epidural steroid injection. Following review of allergy and review of potential side effects and complications, including, but not necessarily limited to, infection, allergic reaction, local tissue breakdown, temporary as well as permanent nerve injury, paralysis, stroke and possible , the patient indicated that the patient understood and agreed to proceed. An informed consent document was signed by the patient, witnessed by a nurse, and placed in the patient's chart. Additionally, other treatment options including modalities, medications, and physical therapy were reviewed with the patient. After review of previous anaesthesic history and IV conscious sedation the patient was deemed safe to proceed with today?s procedure with IV conscious sedation as ASA class II designation. Safety time-out was performed to confirm patient ID, procedure to be performed and site of procedure. IV sedation was accomplished with a combination of 2mg of Versed administered by the RN after DO order, titrated to patient comfort during the course of the procedure while the patient remained responsive to all verbal commands. In the prone position, following sterile prep and drape of the lumbar region, the L5/S1 translaminar space was identified fluoroscopically. The skin was anesthetized via a 25-gauge, 1.5-inch needle with 1% lidocaine solution. At this point, a 22-gauge short bevel spinal needle was atraumatically introduced and advanced under fluoroscopic guidance into the region of the L5/S1 translaminar space. Depth was confirmed on lateral view. Radiological data, including multiple fluoroscopic views of the lumbar spine, reveal a spinal needle at the L5/S1 translaminar space. Lateral views then show placement of the needle in the epidural space. Subsequent views show contrast material flowing superiorly and inferiorly in the epidural space. No vascular or intrathecal uptake is observed. At this point, using loss of resistance technique with saline and air, the epidural space was entered. This was confirmed following negative aspiration with injection of approximately 1.5cc of Isovue 200, showing excellent epidural flow without vascular or intrathecal uptake. At this point, 1 cc of 1% lidocaine solution combined with 2cc or 10mg of dexamethasone and 6mg of betamethasone was injected without incident. The patent tolerated the procedure without signs of symptoms of complications prior to transfer to the recovery area for further monitoring. The patient was then transferred to the recovery area where they were observed for an appropriate period of time after the injection. The patient reported a VAS score of 6 prior to the procedure and a post-procedure VAS of 0. POST OP INSTRUCTIONS The patient was provided a Pain Log to continue to record their response to the target-specific procedure prior to follow-up visit with their referring physician. Additionally, specific post-injection care instructions and a contact number to our office were provided if concerns arise regarding possible complications associated with the procedure are suspected.
== END 2023-07-19 11:37 | disposition home or self-care (01) ==
PROVIDERS: PCP Internal Medicine; Referring Provider Physical Medicine & Rehabilitation; Visit Provider Physical Medicine & Rehabilitation
DX: M51.17 Intervertebral disc disorders with radiculopathy, lumbosacral region (principal); M48.07 Spinal stenosis, lumbosacral region
CPT/HCPCS: 62323; 99152; J0702; J1100; J2250; J3490

== ENCOUNTER → 2023-08-13 15:31 | Outpatient (CLI) | payer OTHER, SELFPAY ==
--- NOTE | 2023-08-13 15:33 | DI.RAD.S_ITS ---
PROCEDURE: XR LUMBAR SPINE MIN 4V INDICATIONS: BACK PAIN TECHNIQUE: 5 views of the lumbar spine were acquired, including bilateral oblique views. COMPARISON: [facility], , XR LUMBAR SPINE MIN 4V, 11/15/2020, 15:32. FINDINGS: Bones: 5 nonrib-bearing vertebrae are present. There is trace L2 on L3 and L3 on L4 retrolisthesis. There is loss of the expected lumbar lordosis. There is anterior wedging at L2 which has a chronic appearance and is unchanged from the study dated November 15, 2020. No vertebral body compression fractures. No suspicious bony lesions. There is diffuse intervertebral disc space narrowing, osteophytosis and facet sclerosis slightly increased from the prior study. Soft tissues: Overlying bowel gas pattern is normal. No suspicious soft tissue calcifications. Oblique images: No pars defects. IMPRESSION: No acute bony abnormality. Mild multilevel spondylolisthesis. No spondylolysis. Dictated by: Krystin White M.D. on 08/13/2023 at 16:48 Approved by: Krystin White M.D. on 08/13/2023 at 16:50
== END ==
LOC: RAD 15:32
PROVIDERS: PCP Internal Medicine; Referring Provider Physical Medicine & Rehabilitation; Visit Provider Physical Medicine & Rehabilitation
DX: M54.16 Radiculopathy, lumbar region (principal); M43.16 Spondylolisthesis, lumbar region
CPT/HCPCS: 72110

== ENCOUNTER 2023-12-23 12:40 | Emergency (ER) | payer OTHER, SELFPAY ==
[2023-12-23 12:48] VITALS: BP 139/83; PULSE 79; RESP 16; TEMP 36.4; O2SAT 99; BMI 28.8
--- NOTE | 2023-12-23 12:58 | ED_ITS ---
HPI - Skin/Abscess/Foreign Bdy <Citlalli Beth PA-C - Last Filed: 12/23/23 15:15> General Chief complaint: Skin/Abscess/Foreign Body Stated complaint: poss insect bite, swollen, bruised Time Seen by Provider: 12/23/23 12:55 Source: patient Mode of arrival: Ambulatory Limitations: no limitations History of Present Illness HPI narrative: 53-year-old male presents with concern for possible infected bug bite. Patient states as of this morning he has a new red swollen and painful area of the back of his left thigh. [place] the beach with [place] the [place] sitting on a log for awhile other than this is he had no time outside or exposures to anything such as spiders or tics has not been camping or hiking recently. He states he has not had previous skin reactions like this before, has not had any previous cellulitis or skin infections. He denies any fevers, chills, shortness of breath, rash or similar area elsewhere on his body or any other complaints or concerns. He states the area is tender to the touch but has not been itchy. Related Data Home Medications Medication Instructions Recorded Confirmed acetaminophen 325 mg tablet 650 mg PO Q6H PRN Pain (Scale 04/07/20 08/13/23 (Tylenol) Score 1-3) atorvastatin 10 mg tablet 10 mg PO BEDTIME 05/11/22 08/13/23 famotidine 20 mg tablet 20 mg PO BID 07/03/22 08/13/23 hyoscyamine sulfate 0.125 mg 0.125 mg PO BEDTIME PRN nausea 07/03/22 08/13/23 disintegrating tablet selenium sulfide 2.3 % shampoo 1 applic topical DAILY 06/20/23 08/13/23 Previous Rx's Medication Instructions Recorded cephalexin 500 mg capsule 500 mg PO TID 7 days #21 caps 12/23/23 Allergies Allergy/AdvReac Type Severity Reaction Status Date / Time No Known Drug Allergies Allergy Verified 08/13/23 16:06 Review of Systems <Citlalli Beth PA-C - Last Filed: 12/23/23 15:15> Review of Systems Narrative: See HPI Patient History <Citlalli Beth PA-C - Last Filed: 12/23/23 15:15> Medical History Herniated nucleus pulposus, L5-S1, right Foot drop, right Lumbar radiculopathy AC joint arthropathy Impingement syndrome of right shoulder Acute degenerative joint disease of shoulder region Lateral epicondylitis Facet arthropathy, lumbar 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 Well-developed patient, in mild distress. HEAD: Atraumatic. Normocephalic. EYES: Pupils equal round and reactive. Extraocular motions intact. No scleral icterus. No injection or drainage. ENT: Nose without bleeding, purulent drainage. Airway patent. NECK: Trachea midline. Non tender CARDIOVASCULAR: Regular rate and rhythm without murmurs, gallops, or rubs. RESPIRATORY: Clear to auscultation. Breath sounds equal bilaterally. No wheezes, rales, or rhonchi. EXTREMITIES: On the affected left leg on the posterior lateral thigh just superior to the knee there is an area of erythema slightly papular in his irregular borders and approximately 11 x 5 cm in size. It is tender to the touch with firm pressure, there is no fluctuance or induration noted. There is no streaking from this wound. Range of motion of the left leg is intact and pain-free. No other edema or joint tenderness. NEURO: AOx3. SKIN: See extremities. No rash or erythema of visible areas Initial Vital Signs Initial Vital Signs: Vital Signs Temperature 97.6 F 12/23/23 12:48 Pulse Rate 79 12/23/23 12:48 Respiratory Rate 16 12/23/23 12:48 Blood Pressure 139/83 12/23/23 12:48 Pulse Oximetry 99 12/23/23 12:48 Oxygen Delivery Method Room Air 12/23/23 12:48 <Brenda Hale DO - Last Filed: 12/25/23 18:11> Initial Vital Signs Initial Vital Signs: Vital Signs Temperature 97.6 F 12/23/23 12:48 Pulse Rate 79 12/23/23 12:48 Respiratory Rate 16 12/23/23 12:48 Blood Pressure 139/83 12/23/23 12:48 Pulse Oximetry 99 12/23/23 12:48 Oxygen Delivery Method Room Air 12/23/23 12:48 Course <Citlalli Beth PA-C - Last Filed: 12/23/23 15:15> Vital Signs Vital signs: Vital Signs - 8 hr 12/23/23 12:48 12/23/23 13:36 Temperature 97.6 F Pulse Rate 79 72 Respiratory Rate 16 16 Blood Pressure 139/83 122/76 Pulse Oximetry 99 96 Oxygen Delivery Method Room Air Room Air <DO Caryn Womack Last Filed: 12/25/23 18:11> Vital Signs Vital signs: Vital Signs - 8 hr 12/23/23 12:48 12/23/23 13:36 Temperature 97.6 F Pulse Rate 79 72 Respiratory Rate 16 16 Blood Pressure 139/83 122/76 Pulse Oximetry 99 96 Oxygen Delivery Method Room Air Room Air MDM - Skin/Abscess/Foreign Bdy <NARDA Auguste Last Filed: 12/23/23 15:15> Differential Diagnosis Differential diagnosis: Likely abscess of skin or subcutaneous tissue, cellulitis, insect bites and other (Infected insect bite) MDM Narrative Medical decision making narrative: 53-year-old male presents with concern for possible infected insect bite with redness and tenderness in the back of his left thigh 1st noted this morning. Exam is most consistent with a insect bite with inflammation and possibly i nfection. Given he is tenderness in his area that is localized to the superficial skin some concern for cellulitis/infected bite. Based on exam and history I am not concern for DVT. Patient has no history of previous cellulitis skin infections or MRSA. No antibiotic allergies. Will treat with cephalexin for 7 day course skin pen was used to delineate the area of erythema today in counseled the patient regarding monitoring for signs of worsening infection. Advised he can try Tylenol, ice or cool compresses over the area. May also want to try an antihistamine to see if this improves inflammation. Return precautions provided, follow-up plan discussed, all questions answered Discharge Plan Departure Patient Disposition: Home Clinical Impression: Infected insect bite Qualifiers: Encounter type: initial encounter Qualified Code(s): W57.XXXA - Bitten or stung by nonvenomous insect and other nonvenomous arthropods, initial encounter Activity Restrictions/Additional Instructions: *You have been diagnosed with insect bite, possibly infected *What to do: *Please continue to take your regular medications as directed. [ 1] New medication prescriptions sent to your pharmacy: [Cephalexin] [ ] New medication written as a paper prescription [ ] No new medications given *Please follow up with your primary care provider in 2-3 days, call for an appointment. Let them know you were seen in the Emergency Department and that we ask that you be seen in follow up. We will electronically transmit a record of today's note if your PCP is in our system. You have an area of redness on the back of her left thigh that is consistent with inflammation possibly infection from an insect bite. As we discussed it is possible that a lot of this redness and swelling is due to inflammation not necessarily infection however because there is tenderness and this appeared rapidly overnight I think it is appropriate to treat for infection. I have prescribed a 7 day course of cephalexin please take this as prescribed for the full course even if all of your symptoms have improved. We did nathalie the area with a skin pen today see you can keep an eye on where the redness was as of your ER visit today at 1:00 p.m. on 12/22. This area of redness may increased slightly until you have taken a few doses of the antibiotic if this is an infectious process. It should not continue to increase after you have had 2 or 3 doses of antibiotic, if it does; or if you develop drainage from the area, increasing pain, fevers, chills this could be a sign the antibiotics are not effective and you should seek re- evaluation. You can take Tylenol as needed for pain you can also try cool compresses or ice on and off over the area, you may also want to try an [id number] antihistamine such as Zyrtec as this could potentially reduce inflammation due to localized allergic reaction. I hope you feel better soon. *If you do not have a primary care provider please contact the [facility] Resource line at [phone]. They will ask some questions about your medical history and help get you set up with a doctor in the community. *Return to Emergency Department if you should have any new, worsening or concerning symptoms, such as [fever greater than 101 F, shaking chills, worsening pain, persistent vomiting or other bothersome symptoms] This was transcribed with voice recognition software and there may be typographical errors. Prescriptions: New cephalexin 500 mg capsule 500 mg PO TID 7 Days Qty: 21 0RF No Action acetaminophen [Tylenol] 325 mg tablet 650 mg PO Q6H PRN (Reason: Pain (Scale Score 1-3)) selenium sulfide 2.3 % shampoo 1 applic topical DAILY atorvastatin 10 mg tablet 10 mg PO BEDTIME famotidine 20 mg tablet 20 mg PO BID Patient Comments: take 1 tablet by mouth twice a day for UPSET STOMACH hyoscyamine sulfate 0.125 mg tablet,disintegrating 0.125 mg PO BEDTIME PRN (Reason: nausea) Referrals: Kale Medrano MD [Primary Care Provider] - Stand Alone Forms: Patient Portal/API ED Sign-out <Brenda Hale DO - Last Filed: 12/25/23 18:11> Cosign ED Attending Carito Attestation: I was immediately available in the department for consultation.
[2023-12-23 13:36] VITALS: BP 122/76; PULSE 72; RESP 16; O2SAT 96
== END 2023-12-23 13:37 | disposition home or self-care (01) ==
PROVIDERS: Emergency Provider Student in an Organized Health Care Education/Training Program; PCP Internal Medicine
DX: S70.362A Insect bite (nonvenomous), left thigh, initial encounter (principal); W57.XXXA Bitten or stung by nonvenomous insect and other nonvenomous arthropods, initial encounter
CPT/HCPCS: 99281

== ENCOUNTER → 2024-01-09 10:24 | Outpatient (CLI) | payer OTHER, SELFPAY ==
--- NOTE | 2024-01-09 11:10 | EKG_ITS ---
[facility] [address] [place] [id number] Test Date: 2024-01-09 Pat Name: Vahe Savage Department: [facility] Room: Gender: Male Production Associate: SERGIO : 1970 Requested By: Order Number: [id number] Reading MD: Sukumar Delgado MD Measurements Intervals [place] Rate: 64 P: 52 NH: 172 QRS: -6 QRSD: 94 T: 4 QT: 386 QTc: 398 Interpretive Statements Normal sinus rhythm Incomplete right bundle branch block NO PRIOR TRACING Electronically Signed On 01-10-2024 7:37:01 PDT by Sukumar Delgado MD
[2024-01-09 11:53] LABS: Appearance Urine UA CLEAR; Bilirubin Urine UA NEGATIVE (NEGATIVE); Color Urine UA YELLOW; Glucose Urine UA NEGATIVE (Negative); Ketones Urine UA NEGATIVE (NEGATIVE); Leukocyte Esterase Urine UA NEGATIVE (NEGATIVE); Nitrite Urine UA NEGATIVE (Negative); Occult Blood Urine UA NEGATIVE (Negative); Protein Urine UA NEGATIVE (Negative); Specific Gravity Urine UA <=1.005 (1.000-1.035); Urobilinogen Urine UA 0.2 E.U./dL (0.2); pH Urine UA 7.5 (4.5-8.0)
[2024-01-09 11:53] LABS: Add Manual Diff / Slide Review NO; Basophils Absolute Auto 100 /uL (0-100); Basophils Percent Auto 0.6 % (0-2); Eosinophils Absolute Auto 0 /uL (0-450); Eosinophils Percent Auto 0.6 % (2-4); Hematocrit 43.8 % (41-53); Hemoglobin 14.9 g/dL (13.5-17.5); Lymphocytes Absolute Auto 2100 /uL (1100-4500); Lymphocytes Percent Auto 24.9 % (25-40); Mean Corpuscular HGB Conc 33.9 % (30-36); Mean Corpuscular Hemoglobin 30.5 PG (26-34); Mean Corpuscular Volume 89.8 fL (80-100); Monocytes Absolute Auto 600 /uL (0-900); Monocytes Percent Auto 7.8 % (3-14); Neutrophils Absolute Auto 5500 /uL (1500-7000); Neutrophils Percent Auto 66.1 % (50-75); Platelet Count 253 X10^3/uL (150-400); Red Blood Cell Count 4.87 X10^6/uL (4.5-5.9); Red Cell Distribution Width 13.5 % (11.6-14.8); White Blood Cell Count 8.4 X10^3/uL (4.5-11.0)
[2024-01-09 11:59] LABS: Hemoglobin A1C% w Est Avg Glu 5.5 % (4.0-6.0)
[2024-01-09 12:05] LABS: Bacteria Urine None Seen; Culture Indicated Urine Cult Not Indicated; RBC Urine None Seen (0-5/HPF); Squamous Epithelial Cell Urine None Seen (0-5/HPF); Urine Volume 10mL (spun); WBC Urine None Seen (0-5/HPF)
[2024-01-09 12:07] LABS: BUN Creatinine Ratio 17.6 (6-22); Blood Urea Nitrogen 13 mg/dL (9-20); Calcium 9.8 mg/dL (8.4-10.2); Carbon Dioxide 27 mmol/L (22-32); Chloride 104 mmol/L (98-107); Estimated Glomerular Filt Rate > 60 mL/min (>60); Glucose 93 mg/dL (70-100); HEMOLYSIS < 15 (0-50); Potassium 4.4 mmol/L (3.4-5.1); Sodium 140 mmol/L (137-145)
== END ==
PROVIDERS: PCP Internal Medicine; Referring Provider Orthopaedic Surgery; Visit Provider Orthopaedic Surgery
DX: Z01.818 Encounter for other preprocedural examination (principal); Z01.812 Encounter for preprocedural laboratory examination; R73.9 Hyperglycemia, unspecified; N39.0 Urinary tract infection, site not specified
CPT/HCPCS: 36415; 80048; 81001; 83036; 85025; 93005

== ENCOUNTER → 2024-04-26 18:55 | Outpatient (CLI) | payer OTHER, SELFPAY ==
[2024-04-26 20:02] LABS: Adenovirus Not Detected (Not Detect); B. parapertussis Not Detected (Not Detecte); Bordetella pertussis Not Detected (Not Detect); Chlamydophila pneumoniae Not Detected (Not Detect); Coronavirus 229E Not Detected (Not Detect); Coronavirus HKU1 Not Detected (Not Detect); Coronavirus NL 63 Not Detected (Not Detect); Coronavirus OC43 Not Detected (Not Detect); Human Metapneumovirus Not Detected (Not Detect); Human Rhinovirus/Enterovirus Not Detected (Not Detect); Influenza A Not Detected (Not Detect); Influenza B Not Detected (Not Detect); Mycoplasma pneumoniae Not Detected (Not Detect); Parainfluenza Virus 1 Not Detected (Not Detect); Parainfluenza Virus 2 Not Detected (Not Detect); Parainfluenza Virus 3 Not Detected (Not Detect); Parainfluenza Virus 4 Not Detected (Not Detect); Respiratory Syncytial Virus Not Detected (Not Detect); SARS- CoV-2 Not Detected (Not Detecte)
== END ==
PROVIDERS: PCP Internal Medicine; Visit Provider Physician Assistant Medical
DX: R50.9 Fever, unspecified (principal)
CPT/HCPCS: 87633